=== PATIENT | male | born 1960 | race Caucasian/White ===

== ENCOUNTER 2019-07-02 11:41 | Emergency (ER) | payer BC ==
[~2019-07-02] VITALS: Ht 177.8 cm; Wt 81.7 kg
--- NOTE | 2019-07-02 11:52 | EKG ---
[place] [address] [facility] [place] [address] ELECTROCARDIOGRAM REPORT Name: KAIT BOWMAN Sebastián Room #: [facility].#: [id number] Admission: Attend Phys: Discharge: Date of : 64 Report #: [id number] THIS REPORT FOR: //name// [facility] ED Test Date: 2019-07-02 Test Time: 11:45:02 Pat Name: KAIT BOWMAN Department: Room: Gender: [employer]: [facility] : 1960 Requested By: Beena Vidales Order Number: [id number] MD: Claudio Corona Measurements Intervals [place] Rate: 78 P: 63 ND: 158 QRS: 53 QRSD: 92 T: -15 QT: 356 QTc: 406 Interpretive Statements Sinus rhythm Borderline repolarization abnormality No previous ECG available for comparison Electronically Signed On 07-02-2019 11:52:04 CHEMICAL LABORATORY TECHNICIAN by Claudio Corona [email or web address] <ELECTRONICALLY SIGNED> By: Claudio Corona MD, [facility] 07/02/19 1152 1145 1145 Claudio Corona MD, FACC /EPI
[2019-07-02 14:03] LABS: ABSOLUTE NEUTROPHILS 2.5 thou/uL (1.4-8.2); BASOPHILS 0.8 % (0.0-2.0); EOSINOPHILS 1.9 % (0.0-3.0); HEMATOCRIT 52.3 % (42.0-52.0); HEMOGLOBIN 17.5 gm/dL (14.0-18.0); LYMPHOCYTES 22.8 % (24.0-44.0); MCH 31.6 pg (26.0-34.0); MCHC 33.5 g/dL (28.0-37.0); MCV 94.2 fL (80.0-100.0); MONOCYTES 11.8 % (1.0-8.0); PLATELET COUNT 223 thou/uL (150-400); POLYS 62.7 % (36.0-66.0); RBC 5.55 mil/uL (4.50-6.00); RDW 13.4 % (10.5-14.5)
[2019-07-02 14:11] LABS: ANION GAP 4 mmol/L (7-16); BUN 13 mg/dL (7-18); CALCIUM 10.4 mg/dL (8.5-10.1); CHLORIDE 102 mmol/L (98-107); CO2 35 mmol/L (21-32); GLUCOSE 85 mg/dL (74-106); POTASSIUM 4.5 mmol/L (3.5-5.1); SODIUM 141 mmol/L (136-145)
[2019-07-02 14:22] LABS: ALBUMIN 4.6 g/dL (3.4-5.0); DIRECT BILIRUBIN 0.1 mg/dL (<0.1-0.2); SGOT 31 U/L (15-37); SGPT 61 U/L (30-65); TOTAL BILIRUBIN 0.5 mg/dL (<0.1-1.0); TOTAL PROTEIN 8.5 g/dL (6.4-8.2); TROPONIN-I <0.06 ng/mL (<0.06)
[2019-07-02 16:30] VITALS: BP 129/90
== END 2019-07-02 16:30 | disposition home or self-care (01) ==
LOC: ER 11:41
PROVIDERS: Emergency Medicine
DX: R07.89 Other chest pain (principal); R51 Headache; R06.02 Shortness of breath; Z88.2 Allergy status to sulfonamides

== ENCOUNTER → 2020-12-20 | Outpatient (CLI) | payer OTHER | LOC: CAT 12:41 | PROVIDERS: ATTEND Internal Medicine Cardiovascular Disease | DX: Z13.6 Encounter for screening for cardiovascular disorders (principal); E78.00 Pure hypercholesterolemia, unspecified; I25.10 Atherosclerotic heart disease of native coronary artery without angina pectoris ==

== ENCOUNTER → 2021-01-22 | Outpatient (CLI) | payer OTHER | LOC: SJCVCIMAG 10:08 | PROVIDERS: ATTEND Internal Medicine Cardiovascular Disease | DX: I08.1 Rheumatic disorders of both mitral and tricuspid valves (principal); I10 Essential (primary) hypertension; E78.01 Familial hypercholesterolemia; E78.5 Hyperlipidemia, unspecified ==